=== PATIENT | female | born 1995 | race Two or more races ===

== ENCOUNTER 2023-02-02 23:52 | Emergency (ER) | payer OTHER ==
[~2023-02-02] VITALS: Ht 152.4 cm; Wt 90.7 kg
[2023-02-03] MEDS ORDERED: KETO10TA2 PO (05:09)
[2023-02-03] MEDS ORDERED: NORFLEX100MG PO (05:09)
== END 2023-02-03 05:15 ==
LOC: ER 23:53
DX: M94.0 Chondrocostal junction syndrome [Tietze] (principal); Z91.041 Radiographic dye allergy status